=== PATIENT | female | born 1945 | race Caucasian/White ===

== ENCOUNTER 2020-06-01 18:30 | Inpatient (IN) ==
[2020-06-01] MEDS ORDERED: Iohexol 180 (CONTRAST) 10 ML SDV IV ONE (18:45)
[2020-06-01] MEDS ORDERED: fentaNYL 100 mcg/2 ml 50 MCG/ML VIAL ONE (19:51)
[2020-06-01] MEDS ORDERED: Acetaminophen IV 1 GM/100ML 100 ML ONE (19:53)
[2020-06-01] MEDS ORDERED: Labetalol IV 5 MG/ML 20 ml VIAL ONE (19:59)
[2020-06-01] MEDS ORDERED: Piperacillin/Tazobac ADVAN 3.375 GM in NS 0.9% 100 ml BAG 100 ML IV ONE (20:00)
[2020-06-01] MEDS ORDERED: Zosyn per Pharmacy NOTE FOLLOW UP SCH (20:00)
[2020-06-01 20:40] LABS: ALT 25 U/L (7-52); AST 24 U/L (13-39); Albumin 3.2 g/dL (3.2-5.2); Albumin/Globulin Ratio 1.3 (1-3); Alkaline Phosphatase 108 U/L (34-104); Anion Gap 9 mmol/L (2-11); BUN/Creatinine Ratio 13.4 (8-20); Blood Urea Nitrogen 19 mg/dL (6-24); CO2 Carbon Dioxide 19 mmol/L (22-32); Calcium 7.8 mg/dL (8.6-10.3); Chloride 108 mmol/L (101-111); EGFR African American 43.8 (>60); EGFR Non-African American 36.2 (>60); Globulin 2.5 g/dL (2-4); Glucose 111 mg/dL (70-100); Hematocrit 33 % (35-47); Mean Corpuscular HGB Conc 34 g/dL (31-36); Mean Corpuscular Hemoglobin 30 pg (27-31); Mean Corpuscular Volume 90 fL (80-97); Mean Platelet Volume 7.8 fL (7.4-10.4); Platelet Count 191 10^3/uL (150-450); Potassium 4.5 mmol/L (3.5-5.0); Red Blood Count 3.63 10^6 /uL (3.70-4.87); Red Cell Distribution Width 14 % (10-15); Sodium 136 mmol/L (135-145); Total Protein 5.7 g/dL (6.4-8.9); White Blood Count 1.1 10^3/uL (3.5-10.8)
[2020-06-01 20:59] LABS: ABS Lymphocytes 0.7 10^3/ul (1.0-4.8); ABS Neutrophils 0.4 10^3/ul (1.5-7.7); Eosinophil % 0.6 %; Lymphocyte % 60.6 %; Nucleated Red Blood Cells % 0.6
[2020-06-01 21:00] LABS: C Reactive Protein 227.29 mg/L (<8.01)
[2020-06-01] MEDS ORDERED: Lactated Ringers 1000 ml BAG 1,000 ML IV ONE (21:00)
[2020-06-01] MEDS ORDERED: Acetaminophen IV 1 GM/100ML 1,000 MG/100 ML VIAL IVPB ONE (21:01)
[2020-06-01 21:12] LABS: Troponin I 0.04 ng/mL (<0.03)
[2020-06-01] MEDS ORDERED: NS 0.9% 1000 ml BAG 1,000 ML IV ONE (21:58)
[2020-06-01 23:33] LABS: Urine Appearance Turbid; Urine Bilirubin Negative (Negative); Urine Blood 3+ (Negative); Urine Color Amber; Urine Glucose Negative (Negative); Urine Ketones Negative (Negative); Urine Nitrite Negative (Negative); Urine Protein 2+(100 mg/dL) (Negative); Urine Specific Gravity 1.031 (1.010-1.030); Urine Urobilinogen Negative (Negative)
[2020-06-02 00:06] LABS: Troponin I 2.31 ng/mL (<0.03)
[2020-06-02 00:17] LABS: Urine Bacteria Absent (Absent); Urine Red Blood Cell 3+(>10/hpf) (Absent); Urine Squamous Epithelial Cell Present (Absent); Urine White Blood Cell 3+(>20/hpf) (Absent)
[2020-06-02] MEDS ORDERED: Iodixanol (CONTRAST) 320 MG/ML 100 ML SDV IV ONE (02:01)
[2020-06-02 02:42] LABS: Troponin I 1.95 ng/mL (<0.03)
[2020-06-02 05:55] LABS: Hematocrit 32 % (35-47); Hemoglobin 10.6 g/dL (12.0-16.0); Mean Corpuscular HGB Conc 33 g/dL (31-36); Mean Corpuscular Hemoglobin 30 pg (27-31); Mean Corpuscular Volume 90 fL (80-97); Mean Platelet Volume 7.9 fL (7.4-10.4); Platelet Count 174 10^3/uL (150-450); Red Blood Count 3.53 10^6 /uL (3.70-4.87); Red Cell Distribution Width 14 % (10-15); White Blood Count 16.7 10^3/uL (3.5-10.8)
[2020-06-02 06:12] LABS: BUN/Creatinine Ratio 15.5 (8-20); EGFR Non-African American 32.7 (>60); Potassium 3.7 mmol/L (3.5-5.0)
[2020-06-02 06:13] LABS: Calcium 7.2 mg/dL (8.6-10.3); EGFR African American 39.5 (>60)
[2020-06-02 07:16] LABS: ABS Lymphocytes 0.2 10^3/ul (1.0-4.8); ABS Monocytes 0.3 10^3/ul (0-0.8); ABS Neutrophils 16.1 10^3/ul (1.5-7.7); Eosinophil % 0.1 %; Lymphocyte % 1.4 %
[2020-06-02 07:54] LABS: Lipase < 10 U/L (11.0-82.0)
[2020-06-02] MEDS ORDERED: ZOSYN 3.375 GM x ONE DOSE over 30 miuntes IV (08:30)
[2020-06-02 10:59] LABS: Magnesium 1.6 mg/dL (1.9-2.7)
[2020-06-02] MEDS ORDERED: ZOSYN 3.375 GM Q8H per EXTENDED INFUSION IV SCH (13:00)
[2020-06-02] MEDS ORDERED: Magnesium Sulfate 2 gm BAG 2 GM/50 ML BAG IVPB ONE (13:38)
[2020-06-02] MEDS: Ondansetron 4 mg VIAL 2 MG/ML 2 ml VIAL IV PRN (18:07)
[2020-06-02] MEDS: cefTRIAXone 2 GM ADDV.VIAL 2 GM in NS 0.9% 100 ml BAG 100 ML IV SCH ×2 (21:50→22:10)
[2020-06-03] MEDS: Ondansetron 4 mg VIAL 2 MG/ML 2 ml VIAL IV PRN ×2 (07:47→16:19)
[2020-06-03 08:56] LABS: Hematocrit 28 % (35-47); Hemoglobin 9.3 g/dL (12.0-16.0); Mean Corpuscular HGB Conc 33 g/dL (31-36); Mean Corpuscular Hemoglobin 29 pg (27-31); Mean Corpuscular Volume 88 fL (80-97); Mean Platelet Volume 8.7 fL (7.4-10.4); Platelet Count 159 10^3/uL (150-450); Red Blood Count 3.19 10^6 /uL (3.70-4.87); Red Cell Distribution Width 14 % (10-15); White Blood Count 21.9 10^3/uL (3.5-10.8)
[2020-06-03 09:15] LABS: ABS Eosinophils 1.1 10^3/ul (0-0.6); ABS Lymphocytes 0.7 10^3/ul (1.0-4.8); ABS Monocytes 1.4 10^3/ul (0-0.8); ABS Neutrophils 18.6 10^3/ul (1.5-7.7); Eosinophil % 5.2 %; Lymphocyte % 3.3 %
[2020-06-03 09:28] LABS: Albumin/Globulin Ratio 1.2 (1-3); BUN/Creatinine Ratio 19.4 (8-20); EGFR African American 39.5 (>60); EGFR Non-African American 32.7 (>60); Globulin 2.5 g/dL (2-4); Magnesium 2.6 mg/dL (1.9-2.7); Potassium 3.9 mmol/L (3.5-5.0); Total Bilirubin 1.4 mg/dL (0.2-1.0); Total Protein 5.5 g/dL (6.4-8.9)
[2020-06-03] MEDS ORDERED: Furosemide 20 mg/2 ml IV VIAL IV ONE (10:19)
[2020-06-03 10:23] LABS: HDL Cholesterol 10.1 mg/dL
[2020-06-03] MEDS: cefTRIAXone 2 GM ADDV.VIAL 2 GM in NS 0.9% 100 ml BAG 100 ML IV SCH (20:27)
[2020-06-04 06:26] LABS: Hematocrit 29 % (35-47); Hemoglobin 9.7 g/dL (12.0-16.0); Mean Corpuscular HGB Conc 34 g/dL (31-36); Mean Corpuscular Hemoglobin 30 pg (27-31); Mean Corpuscular Volume 88 fL (80-97); Mean Platelet Volume 8.8 fL (7.4-10.4); Platelet Count 178 10^3/uL (150-450); Red Blood Count 3.27 10^6 /uL (3.70-4.87); Red Cell Distribution Width 14 % (10-15)
[2020-06-04 06:31] LABS: ABS Eosinophils 0.2 10^3/ul (0-0.6); ABS Lymphocytes 1.1 10^3/ul (1.0-4.8); ABS Monocytes 1.1 10^3/ul (0-0.8); ABS Neutrophils 20.6 10^3/ul (1.5-7.7); Eosinophil % 0.7 %; Lymphocyte % 4.8 %
[2020-06-04 06:32] LABS: INR 1.21 (0.82-1.09)
[2020-06-04 06:44] LABS: ALT 199 U/L (7-52); AST 104 U/L (13-39); Albumin/Globulin Ratio 1.2 (1-3); Alkaline Phosphatase 271 U/L (34-104); Anion Gap 7 mmol/L (2-11); BUN/Creatinine Ratio 17.4 (8-20); Blood Urea Nitrogen 23 mg/dL (6-24); CO2 Carbon Dioxide 26 mmol/L (22-32); Calcium 8.3 mg/dL (8.6-10.3); Chloride 106 mmol/L (101-111); EGFR African American 47.6 (>60); EGFR Non-African American 39.3 (>60); Globulin 2.6 g/dL (2-4); Glucose 86 mg/dL (70-100); Magnesium 2.3 mg/dL (1.9-2.7); Potassium 3.3 mmol/L (3.5-5.0); Sodium 139 mmol/L (135-145); Total Protein 5.6 g/dL (6.4-8.9)
[2020-06-04] MEDS ORDERED: Potassium Chlor 20 meq TAB.ER PO ONE ×2 (07:25→14:00)
[2020-06-04 08:29] LABS: C Reactive Protein 293.39 mg/L (<8.01)
[2020-06-04 08:34] LABS: LDH 269 U/L (140-271)
[2020-06-04] MEDS ORDERED: CMCS: Rosuvastatin 5 mg TAB (NF) PO SCH (09:00)
[2020-06-04] MEDS ORDERED: Furosemide 20 mg/2 ml IV VIAL IV ONE (10:14)
[2020-06-04] MEDS ORDERED: Iodixanol (CONTRAST) 320 MG/ML 100 ML SDV IV ONE (10:56)
[2020-06-04 16:02] LABS: Troponin I 0.39 ng/mL (<0.03)
[2020-06-04] MEDS ORDERED: Furosemide 20 mg/2 ml IV VIAL IV SLOW PU ONE (16:20)
[2020-06-04] MEDS ORDERED: NS 0.9% 100 ml BAG 100 ML ONE (20:55)
[2020-06-04] MEDS: cefTRIAXone 2 GM ADDV.VIAL 2 GM in NS 0.9% 100 ml BAG 100 ML IV SCH (21:49)
[2020-06-05 05:50] LABS: Hematocrit 32 % (35-47); Hemoglobin 10.5 g/dL (12.0-16.0); Mean Corpuscular HGB Conc 33 g/dL (31-36); Mean Corpuscular Hemoglobin 29 pg (27-31); Mean Corpuscular Volume 88 fL (80-97); Mean Platelet Volume 8.7 fL (7.4-10.4); Platelet Count 185 10^3/uL (150-450); Red Blood Count 3.58 10^6 /uL (3.70-4.87); Red Cell Distribution Width 14 % (10-15); White Blood Count 24.6 10^3/uL (3.5-10.8)
[2020-06-05 06:37] LABS: ALT 140 U/L (7-52); AST 54 U/L (13-39); Albumin 3.1 g/dL (3.2-5.2); Albumin/Globulin Ratio 1.1 (1-3); Alkaline Phosphatase 373 U/L (34-104); Anion Gap 10 mmol/L (2-11); BUN/Creatinine Ratio 14.4 (8-20); Blood Urea Nitrogen 17 mg/dL (6-24); CO2 Carbon Dioxide 26 mmol/L (22-32); Calcium 8.6 mg/dL (8.6-10.3); Chloride 100 mmol/L (101-111); EGFR African American 54.2 (>60); EGFR Non-African American 44.8 (>60); Globulin 2.8 g/dL (2-4); Glucose 102 mg/dL (70-100); Magnesium 1.6 mg/dL (1.9-2.7); Potassium 3.3 mmol/L (3.5-5.0); Sodium 136 mmol/L (135-145); Total Protein 5.9 g/dL (6.4-8.9)
[2020-06-05 06:42] LABS: ABS Eosinophils 0.2 10^3/ul (0-0.6); ABS Lymphocytes 1.4 10^3/ul (1.0-4.8); ABS Monocytes 1.5 10^3/ul (0-0.8); ABS Neutrophils 21.5 10^3/ul (1.5-7.7); Eosinophil % 0.8 %; Lymphocyte % 5.7 %
[2020-06-05] MEDS ORDERED: Magnesium Sulfate IV 3 GM in NS 0.9% 100 ml BAG 100 ML IVPB ONE (10:21)
[2020-06-05] MEDS ORDERED: Potassium Chlor 20 meq TAB.ER PO ONE (10:21)
[2020-06-05] MEDS ORDERED: CAMPHO PHENIQUE PRN (12:36)
[2020-06-05] MEDS ORDERED: Furosemide 20 mg/2 ml IV VIAL IV ONE (16:00)
[2020-06-05 18:48] LABS: BUN/Creatinine Ratio 14.2 (8-20); Calcium 9.1 mg/dL (8.6-10.3); EGFR Non-African American 47.1 (>60); Magnesium 2.3 mg/dL (1.9-2.7); Potassium 3.8 mmol/L (3.5-5.0)
[2020-06-05] MEDS: cefTRIAXone 2 GM ADDV.VIAL 2 GM in NS 0.9% 100 ml BAG 100 ML IV SCH (20:40)
[2020-06-05 21:43] LABS: Troponin I 0.24 ng/mL (<0.03)
[2020-06-05] MEDS: Ondansetron 4 mg VIAL 2 MG/ML 2 ml VIAL IV PRN (23:47)
[2020-06-06 06:50] LABS: Hematocrit 33 % (35-47); Hemoglobin 10.9 g/dL (12.0-16.0); Mean Corpuscular HGB Conc 34 g/dL (31-36); Mean Corpuscular Hemoglobin 29 pg (27-31); Mean Corpuscular Volume 88 fL (80-97); Mean Platelet Volume 8.5 fL (7.4-10.4); Platelet Count 195 10^3/uL (150-450); Red Blood Count 3.71 10^6 /uL (3.70-4.87); Red Cell Distribution Width 14 % (10-15); White Blood Count 13.9 10^3/uL (3.5-10.8)
[2020-06-06 07:06] LABS: Albumin 3.1 g/dL (3.2-5.2); BUN/Creatinine Ratio 14.8 (8-20); Calcium 8.7 mg/dL (8.6-10.3); EGFR African American 55.8 (>60); EGFR Non-African American 46.1 (>60); Magnesium 1.9 mg/dL (1.9-2.7); Potassium 3.7 mmol/L (3.5-5.0); Total Bilirubin 0.7 mg/dL (0.2-1.0); Total Protein 6.1 g/dL (6.4-8.9)
[2020-06-06 08:26] LABS: ABS Basophils 0.1 10^3/ul (0-0.2); ABS Eosinophils 0.2 10^3/ul (0-0.6); ABS Lymphocytes 2.1 10^3/ul (1.0-4.8); ABS Monocytes 1.6 10^3/ul (0-0.8); ABS Neutrophils 9.8 10^3/ul (1.5-7.7); Eosinophil % 1.6 %
[2020-06-06 11:12] VITALS: BP 136/59
[2020-06-08 18:45] LABS: Urine Kappa Total Light Chain 1.71 mg/dL (<0.9000); Urine Kappa/Lambda Light Chain 2.25
[2020-06-09 14:16] LABS: Albumin 2.3 g/dL (3.4-4.7); Albumin/Globulin Ratio 0.88; Gamma Globulin 0.6 g/dL (0.6-1.6); Total Protein(PEP) 4.9 g/dL (6.3 - 7.9)
[2020-06-09 21:13] LABS: Haptoglobin 272 mg/dL (30 - 200)
[2020-06-09 21:37] LABS: Kappa Free Light Chain 1.56 mg/dL; Lambda Free Light Chain 1.35 mg/dL
[2020-06-10 17:19] LABS: Albumin 39 %; Albumin/Globulin Ratio 0.64 %; Gamma Globulin 10 %; Total Protein(PEP) Urine 22 mg/dL
== END 2020-06-06 14:20 | disposition home or self-care (01) | DRG 853 ==
LOC: SSU 19:51 → INTOOBSV 19:51 → ICU 20:03 → SSU 06-02 19:16
PROVIDERS: ADMIT Student in an Organized Health Care Education/Training Program; ATTEND Hospitalist